=== PATIENT | male | born 1960 | race Caucasian/White ===

== ENCOUNTER 2024-06-01 08:10 | Observation (INO) | payer BC, SELFPAY ==
[2024-06-01] VITALS (36 sets, daily range): BP systolic 110–171; BP diastolic 66–110; PULSE 50–77; RESP 12–22; TEMP 36.6–37.1; O2SAT 97–100; BMI 28.0
--- NOTE | ~2024-06-01 | XR_ITS ---
XR chest 2V Ordering provider: Angus Samson MD History: 63 years Male with . LEFT UPPER CP . Comparison: None. FINDINGS: MEDIASTINUM: The cardiac silhouette is not enlarged. LUNGS: No infiltrates, effusions or pneumothorax. Pleural-based opacity is seen in the right apical area OTHER: No free air under the diaphragm. Degenerative changes of the spine IMPRESSION: Pleural-based opacity in the right apical area.Follow-up CT is advised. Otherwise, No acute cardiopulmonary pathology. Reviewed, dictated and finalized at location A. 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 Otherwi se, No acute cardiopulmonary pathology.
--- NOTE | ~2024-06-01 | CT_ITS ---
EXAMINATION:CT diagnostic chest w con DATE: 06/02/2024 09:44 INDICATION: Abnormal chest radiograph. TECHNIQUE: Computed tomography (CT) of the chest was performed without intravenous contrast. Automate d exposure control and iterative reconstruction technique were employed. The dose-length product (DLP ) was 325.40 mGy-cm. COMPARISON: Chest 2 views 06/01/2024 FINDINGS: There is mild scarring at the lung apices. There are a few nodules in the lungs measuring u p to 6 mm in right upper lobe. Calcified right lung nodules and calcified right hilar lymph nodes are consistent with old granulomatous disease. There is mild atelectasis bilaterally. No pleural effusio n. The heart size is normal. There is a stent in left anterior descending coronary artery. No pericar dial effusion. There is a small sliding hiatal hernia. Calcifications in the spleen are consistent wi th old granulomatous disease. There is diffuse hepatic steatosis. There is mild chronic anterior wedg ing of multiple vertebral bodies. There is mild thoracic spondylosis. IMPRESSION: 1. Pulmonary nodules measuring up to 6 mm, probably benign. Consider noncontrast low-dose chest CT in 6-12 months. 2. Small sliding hiatal hernia. 3. Diffuse hepatic steatosis. Reviewed, dictated and finalized at location A. HEALTH ASSISTANT IMPRESSION: 1. Pulmonary nodules measuring up to 6 mm, probably benign. Consider noncontras t low-dose chest CT in 6-12 months. 2. Small sliding hiatal hernia. 3. Diffuse hepatic steatosis.
--- NOTE | 2024-06-01 08:12 | ECG_ITS ---
Test Date: 2024-06-01 08:16:28 Measurements Intervals [place] Rate: 67 P: 4 IN: 138 QRS: -3 QRSD: 85 T: 47 QT: 368 QTc: 388 Interpretive Statements SINUS RHYTHM ST DEVIATION AND MODERATE T-WAVE ABNORMALITY, CONSIDER ANTEROLATERAL ISCHEMIA ABNORMAL ECG No previous ECG available for comparison Electronically Signed On 06-01-2024 08:45:28 [employer] by Jurgen Urias D.O.
--- NOTE | 2024-06-01 08:30 | ED_ITS ---
HPI - General Adult General Chief complaint: Chest Pain Stated complaint: cp, left arm pain Time Seen by Provider: 06/01/24 08:20 History of Present Illness HPI narrative: 63 old male presenting to the emergency department for evaluation for chest pain. Patient initially had high chest pain last night the associated with heartburn. Patient states the pain persisted. Patient states this morning when he woke up the pain did go to his left arm. Family murmur did encourage the patient to be evaluated. Patient does not have close follow-up with his physicians. Patient has no p rior diagnosis hypertension, high cholesterol or diabetes. Patient has never had a stress test. Patient denies any prior cardiac history. Related Data Allergies Allergy/AdvReac Type Severity Reaction Status Date / Time No Known Allergies Allergy Verified 06/01/24 08:25 [facility] Past Medical History Medical History (Updated 06/01/24 @ 14:00 by Flaquito Bose MD) History of PTCA 1 LAD 2023 Family History Family History Mother Breast cancer Father Hypertension Social History Social History Smoking status: Never smoker Second hand tobacco smoke exposure: No Alcohol intake: current Drinks per week: 2 Substance use: never Substance use type: does not use Do You Feel Safe in your Home?: Yes Lack of Transportation: No Lack of Food: Never True Current Housing: I Have Housing Concerned About Future Housing: No Difficulty Paying Gas/Electric Bills: No Difficulty Paying for Meds: No Currently Unemployed: No Education: High School Diploma/GED Difficulty w/ Childcare or Family Care: No Living arrangements: with family Occupation/Education: occupation 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 EYES: PERRLA/EOMI, conjunctivae clear. NOSE: Normal no drainage EARS:TMS clear with good light reflex. THROAT: Pharynx clear, no exudate. NECK: Supple. No adenopathy, no masses. RESPIRATORY: Airway patent, respirations nonlabored. Clear to auscultation bilaterally, no rales, rhonchi, wheezing. CARDIOVASCULAR: Regular rate and rhythm without murmurs rubs or gallops. ABDOMINAL: Soft, nontender, nondistended, normal bowel sounds MUSCULOSKELETAL: Moves all extremities. Strength/ROM intact, No edema, No calf tenderness. NEURO: Alert. Cranial nerves II through XII intact. SKIN: Warm, dry. Normal Color Course Vital Signs Vital signs: Vital Signs Temperature 97.8 F 06/01/24 08:21 Pulse Rate 77 06/01/24 08:21 Respiratory Rate 20 06/01/24 08:21 Blood Pressure 171/94 H 06/01/24 08:21 Pulse Oximetry 100 06/01/24 08:21 Oxygen Delivery Room Air 06/01/24 08:21 Temperature 98.0 F 06/01/24 13:20 Pulse Rate 59 L 06/01/24 17:00 Respiratory Rate 20 06/01/24 17:00 Blood Pressure 127/105 H 06/01/24 17:00 Pulse Oximetry 100 06/01/24 17:00 Oxygen Delivery Room Air 06/01/24 17:00 Medical Decision Making MDM Narrative Medical decision making narrative: 63-year-old male presenting emergency department for evaluation for chest pain that radiates into his left arm. Patient's initial EKG does have significant ST depressions. Patient is still having some chest discomfort. I discussed the case with Cardiology and they will evaluate him in the emergency department. They did as the patient to be started on aspirin and heparin. 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 Differential Diagnosis Differential Diagnosis: STEMI, NSTEMI, coronary artery spasm Vital Signs Vital Signs: Vital Signs Temperature 97.8 F 06/01/24 08:21 Pulse Rate 77 06/01/24 08:21 Respiratory Rate 20 06/01/24 08:21 Blood Pressure 171/94 H 06/01/24 08:21 Pulse Oximetry 100 06/01/24 08:21 Oxygen Delivery Room Air 06/01/24 08:21 Temperature 98.0 F 06/01/24 13:20 Pulse Rate 59 L 06/01/24 17:00 Respiratory Rate 20 06/01/24 17:00 Blood Pressure 127/105 H 06/01/24 17:00 Pulse Oximetry 100 06/01/24 17:00 Oxygen Delivery Room Air 06/01/24 17:00 Lab Data Lab results reviewed: Yes I reviewed the patient's lab results. 06/01/24 08:39 06/01/24 08:39 Labs: Lab Results 06/01/24 06/01/24 06/01/24 Range/Units 08:39 11:13 12:54 WBC 4.0 L (4.5-10.0) K/mm3 RBC 5.02 (4.6-6.20) M/mm3 Hgb 14.1 (14.0-18.0) g/dL Hct 42.1 (42.0-52.0) % MCV 83.9 (80-100) fl MCH 28.1 (26-34) pg MCHC 33.5 (32-36) g/dl RDW 13.4 (11.5-14.5) % Plt Count 231 (150-375) k/mm3 MPV 9.3 (7.4-10.4) fl Immature Gran % (Auto) 0.3 (0-0.5) % Neut % (Auto) 72.8 (45.5-73.1) % Lymph % (Auto) 16.5 L (18.3-44.2) % [place] % (Auto) 7.8 (2.6-8.5) % Eos % (Auto) 1.3 (0-4.4) % Baso % (Auto) 1.3 H (0.2-1.2) % Lymph # (Auto) 0.66 L (0.9-3.2) K/mm3 [place] # (Auto) 0.3 (0.1-0.6) K/mm3 Eos # (Auto) 0.1 (0-0.3) K/mm3 Baso # (Auto) 0.1 (0.0-0.1) K/mm3 Abs Immat Gran (auto) 0.01 (0.00-0.031) K/mm3 Absolute Neuts (auto) 2.9 (1.3-6.7) K/mm3 Absolute Nucleated RBC 0.000 (0.0-0.012) K/mm3 Nucleated RBC % 0.0 (0.0-0.2) % PT 13.5 (11.1-14.7) Seconds INR 1.0 APTT 24.2 (22.3-36.8) Seconds Activ Coag Time Kaolin 219 H (74-137) SEC Sodium 139 (137-145) mmol/L Potassium 4.3 (3.4-5.0) mmol/L Chloride 105 (98-107) mmol/L Carbon Dioxide 25 (22-30) mmol/L Anion Gap 9 (4-12) mmol/L BUN 22 H (9-20) mg/dL Creatinine 1.00 (0.7-1.3) mg/dL Estim Creat Clear Calc 72 ml/min Estimated GFR > 60 (59 - ) Glucose 127 H (65-110) mg/dL Calcium 9.0 (8.4-10.2) mg/dL Total Bilirubin 0.7 (0.2-1.3) mg/dL AST 22 (17-59) U/L ALT 22 (6-50) U/L Alkaline Phosphatase 49 (38-126) U/L Troponin I 0.126 H* 1.000 H* D (0.000-0.034) ng/mL Total Protein 7.0 (6.3-8.2) g/dL Albumin 4.4 (3.5-5.1) g/dL Lipase 54 (23-300) U/L Imaging Data Radiologist's impression: Impressions Chest X-Ray 06/01/24 08:55 IMPRESSION: Pleural-based opacity in the right apical area.Follow-up CT is advised. Otherwise, No acute cardiopulmonary pathology. Critical Care Time Critical Care Time Critical Care Time: Yes Total Critical Care Time: 35 Discharge Plan Discharge Clinical Impression: Non-ST elevation [place] (NSTEMI) Patient Disposition: Still a Patient Condition: Serious
[2024-06-01 08:45] LABS: Basophils Absolute Auto 0.1 K/mm3 (0.0-0.1); Basophils Percent Auto 1.3 % (0.2-1.2); Eosinophils Absolute Auto 0.1 K/mm3 (0-0.3); Eosinophils Percent Auto 1.3 % (0-4.4); Hematocrit 42.1 % (42.0-52.0); Hemoglobin 14.1 g/dL (14.0-18.0); Immature Granulocyte Absolute 0.01 K/mm3 (0.00-0.031); Immature Granulocyte Percent A 0.3 % (0-0.5); Lymphocytes Absolute Auto 0.66 K/mm3 (0.9-3.2); Lymphocytes Percent Auto 16.5 % (18.3-44.2); Mean Corpuscular HGB Conc 33.5 g/dl (32-36); Mean Corpuscular Hemoglobin 28.1 pg (26-34); Mean Corpuscular Volume 83.9 fl (80-100); Mean Platelet Volume 9.3 fl (7.4-10.4); Monocytes Absolute Auto 0.3 K/mm3 (0.1-0.6); Monocytes Percent Auto 7.8 % (2.6-8.5); Neutrophils Absolute Auto 2.9 K/mm3 (1.3-6.7); Neutrophils Percent Auto 72.8 % (45.5-73.1); Platelet Count Result 231 k/mm3 (150-375); Red Blood Count 5.02 M/mm3 (4.6-6.20); Red Cell Distribution Width 13.4 % (11.5-14.5)
[2024-06-01] MEDS: ASPIRIN 81 MG CHEWABLE TABLET 324 MG PO (08:46)
[2024-06-01] MEDS: HEPARIN SODIUM 5,000 UNITS/ML VIAL 4000 UNITS IV PUSH (08:46)
[2024-06-01 08:56] LABS: Prothrombin Time 13.5 Seconds (11.1-14.7)
[2024-06-01 08:57] LABS: Partial Thromboplastin Time 24.2 Seconds (22.3-36.8)
[2024-06-01 09:07] LABS: Alanine Aminotransferase 22 U/L (6-50); Albumin Level 4.4 g/dL (3.5-5.1); Alkaline Phosphatase 49 U/L (38-126); Anion Gap 9 mmol/L (4-12); Aspartate Amino Transferase 22 U/L (17-59); Bilirubin,Total 0.7 mg/dL (0.2-1.3); Blood Urea Nitrogen 22 mg/dL (9-20); Carbon Dioxide 25 mmol/L (22-30); Chloride 105 mmol/L (98-107); Estimated CRCL calculation 72 ml/min; Estimated Glomerular Filt Rate > 60; Glucose 127 mg/dL (65-110); Lipase 54 U/L (23-300); Potassium 4.3 mmol/L (3.4-5.0); Sodium 139 mmol/L (137-145)
[2024-06-01 09:12] LABS: Troponin I 0.126 ng/mL (0.000-0.034)
--- NOTE | 2024-06-01 09:55 | PM.CNCAR ---
Assessment and Plan Assessment and plan (1) Non-ST elevation [place] (NSTEMI): Code(s): I21.4 - Non-ST elevation (NSTEMI) myocardial infarction Status: Acute Plan 63-year-old man presented with chest pain whose clinical presentation is consistent with non ST elevation GA Non ST-elevation GA -ECG suggestive of global ischemia and urgent cardiac catheterization was recommended to the patient -the risk and benefits of cardiac catheterization was discussed with patient and patient elected to move forward with cardiac catheterization -in the meantime, it was recommended that he start a heparin drip for ACS protocol and aspirin 324 mg was recommended -start atorvastatin 80 mg every evening -start metoprolol tartrate 25 mg p.o. b.i.d. -obtained and echocardiogram History of Present Illness History of Present Illness Consult date/time: 06/01/24 09:55 Requesting physician: Angus Samson MD Reason For Visit: cp, left arm pain Narrative: 63-year-old man presented with chest pain. Substernal chest pressure started yesterday while he was running with the dogs. The chest discomfort resolved with rest. Throughout yesterday he continued to have chest discomfort with physical exertion that was relieved with rest. He denies any palpitations, loss of consciousness, orthopnea, lower extremity swelling, and shortness of breath. He denies any bleeding or vascular surgeries in the past. He is otherwise a very functional person who runs the dog almost daily. 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 Gender identity (if verbalized by the patient): Male Sexual Orientation (if Verbalized by the Patient): Straight or Heterosexual Meds Home Medications and Allergies Home Medications Medication Instructions Recorded Confirmed Type amoxicillin 875 mg-potassium 1 tablet PO Q12H #14 tabs 04/25/23 04/25/23 Rx clavulanate 125 mg tablet benzonatate 200 mg capsule 200 mg PO TID PRN cough #30 caps 04/25/23 04/25/23 Rx nirmatrelvir 300 mg (150 mg See Rx Instructions PO .COMPLEX 06/07/23 Rx x2)-ritonavir 100 mg tablet,dose #30 ea pack (Paxlovid) nirmatrelvir 300 mg (150 mg See Rx Instructions PO .COMPLEX 03/02/24 Rx x2)-ritonavir 100 mg tablet,dose #30 ea pack (Paxlovid) Allergies Allergy/AdvReac Type Severity Reaction Status Date / Time No Known Allergies Allergy Verified 06/01/24 08:25 Vital Signs Vital Signs - 24 hr 06/01/24 08:21 06/01/24 08:24 06/01/24 09:13 Temperature 36.6 C Pulse Rate 77 77 62 Respiratory Rate 20 17 Blood Pressure 171/94 H 147/85 H Pulse Oximetry 100 99 Oxygen Delivery Room Air 06/01/24 08:25 06/01/24 08:31 06/01/24 08:45 Temperature Pulse Rate 65 65 62 Respiratory Rate 12 16 16 Blood Pressure 147/89 H Pulse Oximetry 97 100 97 Oxygen Delivery 06/01/24 09:27 Temperature Pulse Rate Respiratory Rate Blood Pressure Pulse Oximetry 100 Oxygen Delivery Room Air Exam Const: General: comfortable HENMT: Mouth: Yes moist mucous membranes Eyes: EOM: EOMs intact bilaterally Neck: Neck: no JVD Resp: Auscultation: clear to auscultation bilaterally Cardio: Rate: regular rate Rhythm: regular rhythm GI: GI Palp: Yes Soft to palpation Neuro: Speech: normal speech Extrem: General: normal to inspection and no edema Psych: Affect: normal affect Results Labs and Meds 06/01/24 08:39 06/01/24 08:39 Lab results: Cardiac Enzymes 06/01/24 Range/Units 08:39 AST 22 (17-59) U/L Troponin I 0.126 H* (0.000-0.034) ng/mL Coagulation 06/01/24 Range/Units 08:39 PT 13.5 (11.1-14.7) Seconds APTT 24.2 (22.3-36.8) Seconds CBC 06/01/24 Range/Units 08:39 WBC 4.0 L (4.5-10.0) K/mm3 RBC 5.02 (4.6-6.20) M/mm3 Hgb 14.1 (14.0-18.0) g/dL Hct 42.1 (42.0-52.0) % Plt Count 231 (150-375) k/mm3 Lymph # (Auto) 0.66 L (0.9-3.2) K/mm3 [place] # (Auto) 0.3 (0.1-0.6) K/mm3 Eos # (Auto) 0.1 (0-0.3) K/mm3 Baso # (Auto) 0.1 (0.0-0.1) K/mm3 Comprehensive Metabolic Panel 06/01/24 Range/Units 08:39 Sodium 139 (137-145) mmol/L Potassium 4.3 (3.4-5.0) mmol/L Chloride 105 (98-107) mmol/L Carbon Dioxide 25 (22-30) mmol/L BUN 22 H (9-20) mg/dL Creatinine 1.00 (0.7-1.3) mg/dL Glucose 127 H (65-110) mg/dL Calcium 9.0 (8.4-10.2) mg/dL AST 22 (17-59) U/L ALT 22 (6-50) U/L Alkaline Phosphatase 49 (38-126) U/L Total Protein 7.0 (6.3-8.2) g/dL Albumin 4.4 (3.5-5.1) g/dL Patient Weight 06/01/24 23:59 Weight 93.6 kg
--- NOTE | 2024-06-01 11:06 | ECG_ITS ---
Test Date: 2024-06-01 11:14:38 Measurements Intervals [place] Rate: 60 P: 16 [place]: 146 QRS: -3 QRSD: 95 T: 31 QT: 401 QTc: 402 Interpretive Statements SINUS RHYTHM VOLTAGE CRITERIA FOR LVH MINIMAL Q WAVES- HIGH LATERAL LEADS BASELINE ARTIFACT- V6 BORDERLINE ECG Compared to ECG 06/01/2024 08:16:28 POSSIBLE ISCHEMIA NO LONGER PRESENT Electronically Signed On 06-01-2024 11:52:49 [employer]BALL PLAY[employer] by Jurgen Urias D.O.
[2024-06-01] MEDS: METOPROLOL TARTRATE 25 MG TABLET PO ×2 (11:48→21:32)
--- NOTE | 2024-06-01 11:51 | PC.NURSE ---
cardiac catheterization technician RN's to get patient at 1150 and off ED floor at 1152
--- NOTE | 2024-06-01 11:56 | WPDHPUPDATE1 ---
History and Physical Update Update Date/Time: 06/01/24 11:56 History and Physical has been reviewed, including an updated exam of the patient. There are NO changes in the patient's condition. Risks, benefits, and alternatives have been discussed and questions answered. Patient agrees to proceed with procedure.
--- NOTE | 2024-06-01 11:57 | P.SEDATION_ITS ---
Moderate Sedation Note-Pt Data Patient Data Allergies Allergy/AdvReac Type Severity Reaction Status Date / Time No Known Allergies Allergy Verified 06/01/24 08:25 Home Medications Medication Instructions Recorded Confirmed Type amoxicillin 875 mg-potassium 1 tablet PO Q12H #14 tabs 04/25/23 04/25/23 Rx clavulanate 125 mg tablet benzonatate 200 mg capsule 200 mg PO TID PRN cough #30 caps 04/25/23 04/25/23 Rx nirmatrelvir 300 mg (150 mg See Rx Instructions PO .COMPLEX 06/07/23 Rx x2)-ritonavir 100 mg tablet,dose #30 ea pack (Paxlovid) nirmatrelvir 300 mg (150 mg See Rx Instructions PO .COMPLEX 03/02/24 Rx x2)-ritonavir 100 mg tablet,dose #30 ea pack (Paxlovid) Current Medications: Active Medications Aspirin (Aspirin 81 Mg Enteric Tablet) 81 mg PO QAM JAYNE Atorvastatin Calcium (Atorvastatin 40 Mg Tablet) 80 mg PO HS JAYNE Metoprolol Tartrate (Metoprolol Tartrate 25 Mg Tablet) 25 mg PO Q12HR JAYNE Last Admin: 06/01/24 11:48 Dose: 25 mg Perflutren Lipid Microsphere (Perflutren Lipid Microspheres 1.5 Ml Vial Diluted To 10 Ml Total Volume) 0 ml IV PUSH ONCE PRN; Protocol PRN Reason: adequate visualization Stop: 06/04/24 10:00 Sedation/Anesthesia: No previous sedation/anesthesia problems (including family history). 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 Gender identity (if verbalized by the patient): Male Sexual Orientation (if Verbalized by the Patient): Straight or Heterosexual Mod Sed Physical Exam Physical Exam Pre Procedural Exam: Normal: Lungs, Heart Rate and Heart Rhythm Hours since solid foods: 12 Hours since liquid intake: 12 Mallampati Classification: class II Internal Medicine - PN: Obj Da Vital Signs Vital Signs: Vital Signs - 24 hr 06/01/24 08:21 06/01/24 08:24 06/01/24 09:13 Temperature 36.6 C Pulse Rate 77 77 62 Respiratory Rate 20 17 Blood Pressure 171/94 H 147/85 H Pulse Oximetry 100 99 Oxygen Delivery Room Air 06/01/24 08:25 06/01/24 08:31 06/01/24 08:45 Temperature Pulse Rate 65 65 62 Respiratory Rate 12 16 16 Blood Pressure 147/89 H Pulse Oximetry 97 100 97 Oxygen Delivery 06/01/24 09:27 06/01/24 10:22 06/01/24 11:48 Temperature Pulse Rate 64 67 Respiratory Rate 16 Blood Pressure 141/79 H Pulse Oximetry 100 100 Oxygen Delivery Room Air 06/01/24 11:00 06/01/24 11:16 06/01/24 11:46 Temperature Pulse Rate 62 66 66 Respiratory Rate 18 20 13 Blood Pressure 143/89 H Pulse Oximetry 100 100 100 Oxygen Delivery Meds/Results Medications: Active Medications Generic Name Dose Route Start Last Admin Trade Name Freq PRN Reason Stop Dose Admin Aspirin 81 mg 06/02/24 09:00 Aspirin 81 Mg Enteric Tablet PO QAM [facility] Atorvastatin Calcium 80 mg 06/01/24 21:00 Atorvastatin 40 Mg Tablet PO HS [facility] Metoprolol Tartrate 25 mg 06/01/24 11:30 06/01/24 11:48 Metoprolol Tartrate 25 Mg Tablet PO 25 mg Q12HR [facility] Administration Perflutren Lipid Microsphere 0 ml 06/01/24 10:00 Perflutren Lipid Microspheres 1.5 Ml Vial Diluted To 10 Ml Total Volume IV PUSH 06/04/24 10:00 ONCE PRN adequate visualization Protocol Radiology Results: ITS Impressions Chest X-Ray 06/01/24 08:55 IMPRESSION: Pleural-based opacity in the right apical area.Follow-up CT is advised. Otherwise, No acute cardiopulmonary pathology. Labs 06/01/24 08:39 06/01/24 08:39 Labs: Laboratory Results - last 24 hr 06/01/24 06/01/24 08:39 11:13 WBC 4.0 L RBC 5.02 Hgb 14.1 Hct 42.1 MCV 83.9 MCH 28.1 MCHC 33.5 RDW 13.4 Plt Count 231 MPV 9.3 Immature Gran % (Auto) 0.3 Neut % (Auto) 72.8 Lymph % (Auto) 16.5 L [place] % (Auto) 7.8 Eos % (Auto) 1.3 Baso % (Auto) 1.3 H Lymph # (Auto) 0.66 L [place] # (Auto) 0.3 Eos # (Auto) 0.1 Baso # (Auto) 0.1 Abs Immat Gran (auto) 0.01 Absolute Neuts (auto) 2.9 Absolute Nucleated RBC 0.000 Nucleated RBC % 0.0 PT 13.5 INR 1.0 APTT 24.2 Sodium 139 Potassium 4.3 Chloride 105 Carbon Dioxide 25 Anion Gap 9 BUN 22 H Creatinine 1.00 Estim Creat Clear Calc 72 Estimated GFR > 60 Glucose 127 H Calcium 9.0 Total Bilirubin 0.7 AST 22 ALT 22 Alkaline Phosphatase 49 Troponin I 0.126 H* 1.000 H* D Total Protein 7.0 Albumin 4.4 Lipase 54 ASA Classification/Sedation ASA Classification/Sedation ASA Class: III Emergent: No Risks: Risks, benefits and alternatives explained and patient/family accepted plan for sedation. Patient re-evaluated immediately prior to sedation.
--- NOTE | 2024-06-01 11:58 | WPDCARDPROC ---
Cardiac Cath Procedure Note Date of procedure:: 06/01/24 Performing physician:: CATHETERIZATION LABORATORY REPORT Procedure Date: 06/01/2024 Referring Physician: Dr. Samson Anesthesia: Versed and Fentanyl were ordered and given in my presence at 1207, procedure ended at 1256. Supervision of nurse, Best Ascencio monitored moderate sedation with 2mg Versed and 50mcg Fentanyl was provided for 49 minutes. Pre-op Diagnosis: NSTEMI Post-op Diagnosis: NSTEMI Procedure(s): Left heart catheterization with coronary angiography Access Site: Right radial artery Brief History and Clinical Indications: 63-year-old man who presented with chest pain found to have abnormal ECG and troponin biomarkers whose clinical presentation is consistent with non ST elevation now presents for left heart catheterization with possible percutaneous coronary intervention. All risks, benefits and alternatives to left heart catheterization with or without percutaneous coronary intervention was discussed at length with the patient. Risk of complications including but not limited to bleeding, infection, arrhythmia, stroke, worsening kidney function, blood loss, groin hematoma, limb loss, emergency coronary artery bypass grafting, and even were discussed with the patient and all questions were answered. The patient understood and wished to proceed. Time out called, patient name, date of , medical record number, allergies, procedure performed, identify Sand System Operator, patient and staff member concurred with accurate data, procedure carried on. Findings: LEFT HEART CATHETERIZATION FINDINGS: 1. Left main: The left main coronary artery is widely patent without any significant obstructive disease. 2. Left anterior descending: The LAD is a large caliber vessel that wraps around the apex and gives off 1 large diagonal branch. The proximal to mid LAD has an acute 99% thrombotic lesion. 3. Left circumflex: The left circumflex artery gives off 3 main marginal branches have mild luminal irregularities without any significant obstructive angiographic disease. 4. Right coronary artery: The RCA has mild luminal irregularities without any significant obstructive angiographic disease. The RCA is the dominant vessel. 5. Left ventricle: A. End-diastolic pressure 28 mmHg. B. LV gram deferred. C. No significant gradient across aortic valve on catheter pullback. 6. Opening AO pressure 137/92 and closing AO pressure 154/88 Description of Procedure: Informed consent signed and placed in the chart. Patient transferred to open hearth furnace laborer room. Prepped and draped in usual sterile fashion. 2% lidocaine injected subcutaneously in right wrist area. 22-gauge venipuncture catheter used to access the right radial artery with the Seldinger technique. 6-FR slender sheath placed in right radial artery. Nitroglycerin 200mcg, Verapamil 2.5mg, and Heparin 5000U was given intraarterial through the sheath. J wire advanced under fluoroscopy 5F TIG diagnostic catheter engaged Left Main Coronary Artery. 5F TIG diagnostic catheter engaged Right Coronary Artery Multiple orthogonal angiogram obtained and reviewed 5F Pigtail diagnostic catheter crossed aortic valve to obtain LVEDP, LV angiogram deferred. Procedure Description for PCI: Heparin was used for anticoagulation (ACT maintained above 250) Patient loaded with heparin at 70 units/kg. 6F CLS 3.5 guide catheter was used to intubate the LMCA. 0.014 Runthrough NS coronary wire was passed in to the distal LAD. A 4.0 x 34mm Bjorn Cabell ROWENA was successfully deployed into proximal to mid LAD; post dilated with a 4.5 x 12mm NC balloon. Following this, an IVUS catheter was negotiated into the mid LAD over the coronary wire. Imaging showed adequate expansion and apposition; however, there was an area of proximal edge dissection. Further angiographic images were taken confirming the proximal edge dissection which was flow limiting. This area was covered with a 5.0 x 12mm Bjorn Cabell ROWENA with excellent angiographic results. Intracoronary NTG was administered. Follow-up angiograms showed an excellent result. Coronary wire and guide-catheter were removed under fluoroscopy. Pre-procedure - BOB 2flow Post-procedure - BOB 3 flow No angiographic complications identified. Assessment: Successful IVUS guided PCI to the proximal to mid LAD with overlapping 4.0 x 34mm [place] Cabell ROWENA and 5.0 x 12mm [place] Cabell ROWENA proximally with excellent angiographic results. Post Operative Condition: Stable No significant blood loss Disposition: Floor Plan: The patient will be monitored in the recovery area. DAPT for 1 year followed by ASA indefinitely. Continue aggressive medical therapy and risk factor modification. Obtain a transthoracic echocardiogram. Follow up with me this month . Kavin Cohen Interventional Cardiology
[2024-06-01 12:59] LABS: Activated Clotting Time 219 SEC (74-137)
--- NOTE | 2024-06-01 14:44 | ADMGEN ---
This patient, Jose Ta, was admitted to [place] [id number]. Patient/family oriented to hospital policies and general routines including ID bracelet, bed and alarms, visiting hours, pain management, procedures, bathroom and other care routines, personal items, smoking policy, room service/diet, and visiting hours. Information on how to activate the Rapid Response Team has been discussed. Patient/Family are encouraged to report perceived risks to care and to ask questions if they do not understand what they are told or what they should do.
[2024-06-01] MEDS: SODIUM CHLORIDE 0.9% IV 1,000 ML 125 ML IV CONT (15:23)
--- NOTE | 2024-06-01 17:59 | P.HP_ITS ---
H&P: HPI History of Present Illness Date/Time: 06/01/24 17:59 Chief Complaint: Chest pain Narrative: 63yo healthy male who presents with chest pain. Patient developed upper chest pain described as 'heartburn' while walking the dog the day before admission. Symptoms were brief and not associated with nauea, vomiting, diaphoresis or SOB. No radiation to the pain. He does mention that about 1 week ago, he had an episode on dizziness, lightheaded with nausea and vomiting while out to eat. He has not eaten all that day and may have e3aten too fast. No chest hakan associated with those symptoms. Patient awoke early this morning and was getting ready for work when he developed left upper chest pain. His left arm felt 'numb'. No SOB, nausea or diaphoresis. No radiation to the pain. He denies hx of HTN, HLD, DM or tobacco use. No family hx of early CAD. He has been feeling well otherwise and no other symptoms. He was brought to the ED by his in private car. In the ED, patient was hemodynamically stable. He was hypertensive with a blood pressure of 171/94. He was not febrile, tachycardic, tachypneic or hypoxic. EKG showed normal sinus rhythm with ST deviation and moderate T-wave changes consider anterior lateral ischemia. Chest x-ray showed a pleural based opacity in the right apical area otherwise no acute cardiopulmonary disease. CBC was normal except for a mild lymphopenia. CMP was normal except for a BUN 22 and a glucose of 127. Lipase was normal. Troponin trended up to 1.0. Patient was seen in the emergency room by Cardiology and was taken acutely for a left heart catheterization. He was found to have proximal to mid LAD acute 99% thrombotic lesion. The left main was widely patent without significant disease. Left circumflex and RCA had mild luminal irregularities. Patient underwent PCI of the proximal to mid LAD lesion with placement of a drug-eluting stent with good results. He was admitted for further care. No exposure to asbestosis that he is aware of. 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 Review of Systems Review of Systems: All systems reviewed & are unremarkable except as noted in HPI and below [facility] Past Medical History Medical History (Updated 06/01/24 @ 18:51 by James Carolina MD) CAD (coronary artery disease) History of PTCA 2023 Surgical History Surgical History (Updated 06/01/24 @ 18:51 by James Carolina MD) No history of previous surgery Family History Family History Mother Breast cancer Father Hypertension Social History Social History (Updated 06/01/24 @ 18:52 by James Carolina MD) Social History: Patient lives at home with his . They have 2 dogs. He drinks 3-4 alcoholic drinks per week. Lifelong nonsmoker. No history of drug use. Code status -full Surrogate decision maker - Smoking status: Never smoker Second hand tobacco smoke exposure: No Alcohol intake: current Drinks per week: 2 Substance use: never Substance use type: does not use Do You Feel Safe in your Home?: Yes Lack of Transportation: No Lack of Food: Never True Current Housing: I Have Housing Concerned About Future Housing: No Difficulty Paying Gas/Electric Bills: No Difficulty Paying for Meds: No Currently Unemployed: No Education: High School Diploma/GED Difficulty w/ Childcare or Family Care: No Living arrangements: with family Occupation/Education: occupation 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 Gender identity (if verbalized by the patient): Male Sexual Orientation (if Verbalized by the Patient): Straight or Heterosexual Spiritual care concerns: No Meds Home Medications and Allergies Home Medications Medication Instructions Recorded Confirmed Type ticagrelor 90 mg tablet (Brilinta) 90 mg PO Q12HR 30 days #60 tabs 06/01/24 Rx Allergies Allergy/AdvReac Type Severity Reaction Status Date / Time No Known Allergies Allergy Verified 06/01/24 08:25 Vital Signs Vital Signs - 24 hr 06/01/24 08:21 06/01/24 08:24 06/01/24 09:13 Temperature 97.8 F Pulse Rate 77 77 62 Pulse Rate [Monitor] Respiratory Rate 20 17 Blood Pressure 171/94 H 147/85 H Pulse Oximetry 100 99 Oxygen Delivery Room Air 06/01/24 08:25 06/01/24 08:31 06/01/24 08:45 Temperature Pulse Rate 65 65 62 Pulse Rate [Monitor] Respiratory Rate 12 16 16 Blood Pressure 147/89 H Pulse Oximetry 97 100 97 Oxygen Delivery 06/01/24 09:27 06/01/24 10:22 06/01/24 11:48 Temperature Pulse Rate 64 67 Pulse Rate [Monitor] Respiratory Rate 16 Blood Pressure 141/79 H Pulse Oximetry 100 100 Oxygen Delivery Room Air 06/01/24 11:00 06/01/24 11:16 06/01/24 11:46 Temperature Pulse Rate 62 66 66 Pulse Rate [Monitor] Respiratory Rate 18 20 13 Blood Pressure 143/89 H Pulse Oximetry 100 100 100 Oxygen Delivery 06/01/24 13:20 06/01/24 13:20 06/01/24 13:30 Temperature 98.0 F Pulse Rate 53 L 50 L Pulse Rate [Monitor] 57 L Respiratory Rate 16 17 Blood Pressure 136/84 133/103 H Pulse Oximetry 99 98 Oxygen Delivery Room Air Room Air 06/01/24 13:30 06/01/24 13:45 06/01/24 13:45 Temperature Pulse Rate 50 L Pulse Rate [Monitor] 50 L 50 L Respiratory Rate 19 Blood Pressure 125/92 H Pulse Oximetry 98 Oxygen Delivery Room Air 06/01/24 14:00 06/01/24 14:00 06/01/24 14:15 Temperature Pulse Rate 55 L Pulse Rate [Monitor] 55 L 53 L Respiratory Rate 17 Blood Pressure Pulse Oximetry 100 Oxygen Delivery Room Air 06/01/24 14:15 06/01/24 14:30 06/01/24 14:30 Temperature Pulse Rate 53 L 54 L Pulse Rate [Monitor] 54 L Respiratory Rate 14 16 Blood Pressure 130/85 110/66 Pulse Oximetry 100 100 Oxygen Delivery Room Air Room Air 06/01/24 15:00 06/01/24 15:00 06/01/24 14:45 Temperature Pulse Rate 58 L Pulse Rate [Monitor] 60 60 Respiratory Rate 19 Blood Pressure 137/77 Pulse Oximetry 97 Oxygen Delivery Room Air 06/01/24 14:45 06/01/24 15:15 06/01/24 15:45 Temperature Pulse Rate 60 61 59 L Pulse Rate [Monitor] Respiratory Rate 14 20 19 Blood Pressure 121/79 149/83 H 116/69 Pulse Oximetry 100 100 100 Oxygen Delivery Room Air Room Air Room Air 06/01/24 15:30 06/01/24 16:00 06/01/24 16:15 Temperature Pulse Rate 60 58 L 59 L Pulse Rate [Monitor] Respiratory Rate 18 18 22 H Blood Pressure 149/110 H 129/72 128/74 Pulse Oximetry 99 99 98 Oxygen Delivery Room Air Room Air Room Air 06/01/24 16:30 06/01/24 16:45 06/01/24 17:00 Temperature Pulse Rate 60 62 59 L Pulse Rate [Monitor] Respiratory Rate 15 18 20 Blood Pressure 137/77 132/83 127/105 H Pulse Oximetry 99 100 100 Oxygen Delivery Room Air Room Air Room Air Exam Narrative: AF 98.8 143/91 54 16 100% ra Gen - well appearing male in no acute respiratory distress who is nontoxic- appearing lying semi recumbent in bed HEENT - normocephalic. Atraumatic. Pupils equal round and reactive. Extraocular motions intact. Sclera clear and anicteric. Nares patent. Oropharynx was clear. No oral lesions. Moist mucous membranes. Tongue was midline. Palate liam symmetrically. No facial asymmetry. Neck - neck was supple. No thyromegaly or masses. No dominant anterior cervical, posterior cervical, supraclavicular or axillary adenopathy. 2+ carotid upstrokes without bruits. Chest - lungs are clear to auscultation bilaterally. No wheezes or crackles. CV - heart was regular rate and rhythm. S1-S2. No murmurs gallops or rubs. Abd - abdomen was soft. Nontender. Nondistended. Positive bowel sounds. No organomegaly or masses. Ext - no clubbing, cyanosis or pedal edema. 2+ PT pulses bilaterally. Right UE in extension with arm immobilizer. Right radial dressing clean, dry and intact. Neuro - patient is alert and oriented x4. Strength is 5/5 in both upper and lower extremities. Cranial nerves 2-12 are intact. Speech is clear. Psych - normal mood and affect. Patient is pleasant and cooperative. Skin - warm and dry. No rashes noted. H&P: Results Labs Labs: Short CBC 06/01/24 Range/Units 08:39 WBC 4.0 L (4.5-10.0) K/mm3 Hgb 14.1 (14.0-18.0) g/dL Hct 42.1 (42.0-52.0) % Plt Count 231 (150-375) k/mm3 [facility] 06/01/24 08:39 Sodium 139 Potassium 4.3 Chloride 105 Carbon Dioxide 25 BUN 22 H Creatinine 1.00 Glucose 127 H Calcium 9.0 Cardiac Enzymes 06/01/24 06/01/24 Range/Units 08:39 11:13 Troponin I 0.126 H* 1.000 H* D (0.000-0.034) ng/mL Liver Function 06/01/24 Range/Units 08:39 Total Bilirubin 0.7 (0.2-1.3) mg/dL AST 22 (17-59) U/L ALT 22 (6-50) U/L Alkaline Phosphatase 49 (38-126) U/L Albumin 4.4 (3.5-5.1) g/dL Assessment and Plan Assessment and plan (1) Non-ST elevation OK (NSTEMI): Code(s): I21.4 - Non-ST elevation (NSTEMI) myocardial infarction Status: Acute Assessment and Plan: Patient presents with CP and found to have abnormal EKG and elevated Trop consistent with NSTEMI. He underwent emergent LHC and found to have a discreet LAD lesion s/p PCI with ROWENA placement. He tolerated the procedure well. Echo ordered. Continue medical management with ASA, Brilinta, Lipitor and Lopressor. (2) CAD (coronary artery disease): Code(s): I25.10 - Atherosclerotic heart disease of [place] coronary artery without angina pectoris Status: Acute Assessment and Plan: As above. Continue aggressive medical management. Check A1c, lipids. (3) Elevated blood pressure reading: Code(s): R03.0 - Elevated blood-pressure reading, without diagnosis of hypertension Status: Acute Assessment and Plan: BP elevated on admission which could be related to anxiety, pain or stress. He also may have underlying HTN. BP better controlled. Continue Lopressor Titrate medications as needed (4) Abnormal chest x-ray: Code(s): R93.89 - Abnormal findings on diagnostic imaging of other specified body structures Status: Acute Assessment and Plan: CXR showing a pleural-based opacity right apical area. No obvious risk factors. He has a hx of PNA so consider scarring. Will proceed with CT chest. (5) Lymphopenia: Code(s): D72.810 - Lymphocytopenia Status: Acute Assessment and Plan: WBC 4000 with lymphopenia (ALC 660). Has had a PNA in the past but no frequent infections. Could be transient possibly for viral etiolgy. Differential is long and includes sarcoid, RA, alcohol, histo, TB that could be associated with the lung findings. Will repeat to see if persistent finding. Watch for s/sx of withdrawal Plan DVT prophylaxis - SCDs Code status - Full
[2024-06-01] MEDS: ATORVASTATIN 40 MG TABLET 80 MG PO (21:32)
[2024-06-01] MEDS: TICAGRELOR 90 MG TABLET PO (21:32)
[2024-06-02] VITALS (14 sets, daily range): BP systolic 121–132; BP diastolic 67–80; PULSE 52–72; RESP 16–20; TEMP 36.5–36.9; O2SAT 98–100
--- NOTE | 2024-06-02 | ECHO_ITS ---
Patient Info Name: Jose Ta Age: 63 years : 1960 Gender: Male Ht: 72 in Wt: 198 lbs BSA: 2.15 m2 HR: 54 bpm BP: 127 / 72 mmHg Heart Rhythm: Sinus Rhythm Technical Quality: Good Exam Date: 06/02/2024 12:13 PM Exam Location: Echo Lab Patient Status: Outpatient Admit Date: 06/01/2024 Staff Ordering Physician: Kavin Cohen MD ([facility]) Merchant Seaman: Chioma Toth RDCS Attending Provider: James Carolina MD Exam Type: CA echo doppler color flow Study Info Indications - NSTEMI Complete two-dimensional, color flow and Doppler transthoracic echocardiogram is performed. Summary 1. Left ventricular chamber dimension is normal. 2. Left ventricular systolic function is normal, estimated at 60-65%. 3. There is mildly increased left ventricular wall thickness. 4. The left ventricular diastolic function is grade I diastolic dysfunction. 5. Right ventricular systolic function is normal. 6. Left atrial chamber dimension is mildly enlarged. 7. There is mild aortic valve regurgitation. 8. The aortic root size at the sinus of Valsalva is dilated at 4.2cm.. Left Ventricle Left ventricular chamber dimension is normal. Left ventricular systolic function is normal, estimated at 60-65%. There is mildly increased left ventricular wall thickness. The left ventricular diastolic function is grade I diastolic dysfunction. Right Ventricle Right ventricular chamber dimension is normal. Right ventricular systolic function is normal. Left Atria Left atrial chamber dimension is mildly enlarged. Right Atria Right atrial chamber dimension is normal. Atrial Septum Intact interatrial septum visualized by color flow imaging. Aortic Valve The aortic valve is probable trileaflet. There is no aortic valve stenosis. There is mild aortic valve regurgitation. Pulmonic Valve The pulmonic valve is normal. There is trace pulmonic regurgitation. Mitral Valve There is trace mitral valve regurgitation. Tricuspid Valve There is trace tricuspid valve regurgitation. Pericardium/Pleural The pericardium appears epicardial fat pad. There is no pericardial effusion. Inferior Vena Cava Normal inferior vena cava with >50% collapse upon inspiration consistent with normal right atrial pressure, 3 mmHg. Aorta The aortic root size at the sinus of Valsalva is dilated at 4.2cm.. Left Ventricular Outflow Tract Name Value Normal LVOT 2D LVOT Diameter 2.2 cm LVOT Doppler LVOT Peak Gradient 2 mmHg LVOT Mean Gradient 1 mmHg LVOT VTI 15 cm LVOT VTI/AV VTI Ratio 0.8 LVOT Stroke Volume 60 ml LVOT CO 3.4 l/min LVOT CI 1.6 l/min/m2 Pulmonic Valve Name Value Normal PV Regurgitation Doppler AZ Peak End Diastolic Velocity 72 cm/s Mitral Valve Name Value Normal MV Doppler MV Decel Edmunds 237 cm/s2 MV PHT 76 ms MV Area (PHT) 2.9 cm2 4.0-5.0 MV Diastolic Function MV E Peak Velocity 62 cm/s MV A Peak Velocity 50 cm/s MV E/A 1.2 MV Decel Time 263 ms MV Annular TDI MV E/e' (Septal) 9.0 <=8.0 MV E/e' (Lateral) 6.6 <=8.0 MV E/e' (Average) 7.8 Tricuspid Valve Name Value Normal TV Regurgitation Doppler TR Peak Velocity 197 cm/s TR Peak Gradient 5 mmHg Estimated PAP/RSVP RA Pressure 3 mmHg <=5 PA Systolic Pressure 19 mmHg <36 RV Systolic Pressure 19 mmHg <36 Aortic Valve Name Value Normal AV Doppler AV Peak Velocity 103 cm/s AV Peak Gradient 4 mmHg AV Mean Gradient 2 mmHg AV VTI 19 cm AV Area (Cont Eq VTI) 3.1 cm2 >=3.0 AV Area (Cont Eq Zachary) 2.8 cm2 AV Regurgitation 2D LVOT Area 3.9 cm2 AV Regurgitation Doppler AR Decel Time 2,420 ms AR Decel Edmunds 134 cm/s2 AR PHT 702 ms Ventricles Name Value Normal LV Dimensions 2D/MM IVS Diastolic Thickness (2D) 1.0 cm 0.6-1.0 LVID Diastole (2D) 5.6 cm 4.2-5.8 LVIW Diastolic Thickness (2D) 1.0 cm 0.6-1.0 LVID Systole (2D) 3.6 cm 2.5-4.0 LVOT Diameter 2.2 cm LV Mass (2D Cubed) 227.27 g 88.00-224.00 LV Mass Index (2D Cubed) 106 g/m2 49-115 Relative Wall Thickness (2D) 0.37 LV Fractional Shortening/Ejection Fraction 2D/MM LV Fractional Shortening (2D) 36 % 25-43 LV EF (2D Teicholz) 64 % 52-72 LV Diastolic Volume (4C MOD) 141 ml LV EF (4C MOD) 54 % LV Diastolic Volume (2C MOD) 122 ml LV EF (2C MOD) 62 % LV Diastolic Volume (BP MOD) 132 ml 62-150 LV Diastolic Volume Index (BP MOD) 61 ml/m2 34-74 LV Systolic Volume (BP MOD) 54 ml 21-61 LV Systolic Volume Index (BP MOD) 25 ml/m2 11-31 LV EF (BP MOD) 59 % 52-72 LV Diastolic Length (4C) 8.6 cm LV Systolic Length (4C) 6.7 cm LV Stroke Volume (4C MOD) 76 ml Atria Name Value Normal LA Dimensions LA Volume (4C A-L) 68 ml LA Volume (BP A-L) 86 ml RA Dimensions RA Area (4C) 10.8 cm2 <=18.0 Report Signatures
[2024-06-02 05:05] LABS: Basophils Percent Auto 0.6 % (0.2-1.2); Eosinophils Absolute Auto 0.1 K/mm3 (0-0.3); Eosinophils Percent Auto 1.5 % (0-4.4); Hematocrit 40.9 % (42.0-52.0); Hemoglobin 13.4 g/dL (14.0-18.0); Immature Granulocyte Absolute 0.01 K/mm3 (0.00-0.031); Immature Granulocyte Percent A 0.2 % (0-0.5); Lymphocytes Absolute Auto 0.95 K/mm3 (0.9-3.2); Lymphocytes Percent Auto 17.7 % (18.3-44.2); Mean Corpuscular HGB Conc 32.8 g/dl (32-36); Mean Corpuscular Hemoglobin 27.7 pg (26-34); Mean Corpuscular Volume 84.5 fl (80-100); Mean Platelet Volume 9.7 fl (7.4-10.4); Monocytes Absolute Auto 0.5 K/mm3 (0.1-0.6); Neutrophils Absolute Auto 3.8 K/mm3 (1.3-6.7); Platelet Count Result 226 k/mm3 (150-375); Red Blood Count 4.84 M/mm3 (4.6-6.20); Red Cell Distribution Width 13.4 % (11.5-14.5); White Blood Count 5.4 K/mm3 (4.5-10.0)
[2024-06-02 05:14] LABS: Alanine Aminotransferase 21 U/L (6-50); Albumin Level 3.8 g/dL (3.5-5.1); Alkaline Phosphatase 42 U/L (38-126); Anion Gap 5 mmol/L (4-12); Aspartate Amino Transferase 24 U/L (17-59); Bilirubin,Total 0.8 mg/dL (0.2-1.3); Blood Urea Nitrogen 18 mg/dL (9-20); Calcium 8.7 mg/dL (8.4-10.2); Carbon Dioxide 26 mmol/L (22-30); Chloride 107 mmol/L (98-107); Cholesterol 177 mg/dL (0-200); Estimated CRCL calculation 66 ml/min; Estimated Glomerular Filt Rate > 60; Glucose 111 mg/dL (65-110); HDL Direct 48 mg/dL; Hemoglobin A1C 5.4 % (<5.7); Potassium 4.3 mmol/L (3.4-5.0); Sodium 138 mmol/L (137-145); Triglycerides 76 mg/dL (<150)
[2024-06-02 05:25] LABS: LDL Cholesterol Direct 91 mg/dL
[2024-06-02] MEDS: METOPROLOL TARTRATE 25 MG TABLET PO (08:27)
[2024-06-02] MEDS: ASPIRIN 81 MG ENTERIC TABLET PO (08:27)
[2024-06-02] MEDS: TICAGRELOR 90 MG TABLET PO (08:27)
--- NOTE | 2024-06-02 11:52 | P.PNCA_ITS ---
Progress Note: A&P Assessment and Plan (1) Non-ST elevation OR (NSTEMI): Code(s): I21.4 - Non-ST elevation (NSTEMI) myocardial infarction Status: Acute Assessment and Plan: Underwent successful IVUS guided PCI to the proximal to mid LAD with overlapping 4.0 x 34mm [place] ROWENA and 5.0 x 12mm [place] ROWENA proximally with excellent angiographic results. Continue ASA 81mg once daily indefinitely. Continue Brilinta 90mg BID for at least 1 year. Continue high intensity statin. Continue beta dillon. Obtain TTE. (2) CAD (coronary artery disease): Code(s): I25.10 - Atherosclerotic heart disease of [place] coronary artery without angina pectoris Status: Acute Assessment and Plan: As above. (3) Elevated blood pressure reading: Code(s): R03.0 - Elevated blood-pressure reading, without diagnosis of hypertension Status: Acute Assessment and Plan: Had elevated blood pressure on admission, now improved. Likely due to chest pain from NSTEMI. Continue Metoprolol. Plan Okay for discharge this afternoon once echocardiogram completed. Will arrange follow up in our office. Recommendations and plan discussed with Hospitalist. Subjective Date/time seen: 06/02/24 11:52 Interval history: Reason for visit: NSTEMI HPI: 63-year-old man presented with chest pain. Substernal chest pressure started yesterday while he was running with the dogs. The chest discomfort resolved with rest. Throughout yesterday he continued to have chest discomfort with physical exertion that was relieved with rest. He denies any palpitations, loss of consciousness, orthopnea, lower extremity swelling, and shortness of breath. He denies any bleeding or vascular surgeries in the past. He is otherwise a very functional person who runs the dog almost daily. Date of service 06/02: Feeling well today. Review of Systems Review of Systems: All systems reviewed & are unremarkable except as noted in HPI and below (HPI) Exam Const: General: comfortable and no acute distress HENMT: Mouth: Yes moist mucous membranes Eyes: General: appearance normal, both eyes and all related structures Sclera: sclerae normal Resp: Effort & Inspection: normal respiratory effort Cardio: Rate: regular rate Rhythm: regular rhythm Skin: General skin exam: normal color Neuro: Speech: normal speech Psych: Mental Status: mental status grossly normal Affect: normal affect Objective Data Vital Signs Vital Signs: Vital Signs - 24 hr 06/01/24 13:20 06/01/24 13:20 06/01/24 13:30 Temperature 36.7 C Pulse Rate 53 L 50 L Pulse Rate [Monitor] 57 L Respiratory Rate 16 17 Blood Pressure 136/84 133/103 H Pulse Oximetry 99 98 Oxygen Delivery Room Air Room Air Fraction of Inspired Oxygen 06/01/24 13:30 06/01/24 13:45 06/01/24 13:45 Temperature Pulse Rate 50 L Pulse Rate [Monitor] 50 L 50 L Respiratory Rate 19 Blood Pressure 125/92 H Pulse Oximetry 98 Oxygen Delivery Room Air Fraction of Inspired Oxygen 06/01/24 14:00 06/01/24 14:00 06/01/24 14:15 Temperature Pulse Rate 55 L Pulse Rate [Monitor] 55 L 53 L Respiratory Rate 17 Blood Pressure Pulse Oximetry 100 Oxygen Delivery Room Air Fraction of Inspired Oxygen 06/01/24 14:15 06/01/24 14:30 06/01/24 14:30 Temperature Pulse Rate 53 L 54 L Pulse Rate [Monitor] 54 L Respiratory Rate 14 16 Blood Pressure 130/85 110/66 Pulse Oximetry 100 100 Oxygen Delivery Room Air Room Air Fraction of Inspired Oxygen 06/01/24 15:00 06/01/24 15:00 06/01/24 14:45 Temperature Pulse Rate 58 L Pulse Rate [Monitor] 60 60 Respiratory Rate 19 Blood Pressure 137/77 Pulse Oximetry 97 Oxygen Delivery Room Air Fraction of Inspired Oxygen 06/01/24 14:45 06/01/24 15:15 06/01/24 15:45 Temperature Pulse Rate 60 61 59 L Pulse Rate [Monitor] Respiratory Rate 14 20 19 Blood Pressure 121/79 149/83 H 116/69 Pulse Oximetry 100 100 100 Oxygen Delivery Room Air Room Air Room Air Fraction of Inspired Oxygen 06/01/24 15:30 06/01/24 16:00 06/01/24 16:15 Temperature Pulse Rate 60 58 L 59 L Pulse Rate [Monitor] Respiratory Rate 18 18 22 H Blood Pressure 149/110 H 129/72 128/74 Pulse Oximetry 99 99 98 Oxygen Delivery Room Air Room Air Room Air Fraction of Inspired Oxygen 06/01/24 16:30 06/01/24 16:45 06/01/24 17:00 Temperature Pulse Rate 60 62 59 L Pulse Rate [Monitor] Respiratory Rate 15 18 20 Blood Pressure 137/77 132/83 127/105 H Pulse Oximetry 99 100 100 Oxygen Delivery Room Air Room Air Room Air Fraction of Inspired Oxygen 06/01/24 17:30 06/01/24 18:29 06/01/24 18:00 Temperature 37.1 C 36.6 C Pulse Rate 54 L 72 67 Pulse Rate [Monitor] Respiratory Rate 16 18 Blood Pressure 143/91 H 135/75 Pulse Oximetry 100 98 Oxygen Delivery Fraction of Inspired Oxygen 06/01/24 18:54 06/01/24 20:07 06/01/24 21:32 Temperature 37.0 C 36.9 C Pulse Rate 68 64 66 Pulse Rate [Monitor] Respiratory Rate 16 16 Blood Pressure 136/73 128/75 Pulse Oximetry 98 100 Oxygen Delivery Fraction of Inspired Oxygen 06/01/24 20:00 06/01/24 22:00 06/02/24 00:20 Temperature 36.9 C Pulse Rate 64 63 57 L Pulse Rate [Monitor] Respiratory Rate 16 Blood Pressure 121/72 Pulse Oximetry 98 Oxygen Delivery Fraction of Inspired Oxygen 06/02/24 00:00 06/02/24 02:00 06/02/24 05:09 Temperature 36.9 C Pulse Rate 58 L 52 L 52 L Pulse Rate [Monitor] Respiratory Rate 16 Blood Pressure 127/72 Pulse Oximetry 98 Oxygen Delivery Fraction of Inspired Oxygen 06/02/24 04:00 06/02/24 06:00 06/02/24 07:58 Temperature 36.8 C Pulse Rate 52 L 54 L 59 L Pulse Rate [Monitor] Respiratory Rate 20 Blood Pressure 132/67 Pulse Oximetry 100 Oxygen Delivery Fraction of Inspired Oxygen 06/02/24 08:27 06/02/24 08:31 06/02/24 08:00 Temperature Pulse Rate 72 72 Pulse Rate [Monitor] Respiratory Rate 20 Blood Pressure Pulse Oximetry 99 99 Oxygen Delivery Room Air Room Air Fraction of Inspired Oxygen 21 06/02/24 08:00 06/02/24 10:00 06/02/24 11:49 Temperature 36.5 C Pulse Rate 64 54 L 56 L Pulse Rate [Monitor] Respiratory Rate 20 Blood Pressure 131/80 Pulse Oximetry 100 Oxygen Delivery Fraction of Inspired Oxygen Intake/Output Intake/Output: Intake & Output 05/30/24 05/31/24 06/01/24 06/02/24 23:59 23:59 23:59 23:59 Intake Total 1080 1460 Balance 1080 1460 Meds/Results Medications: Active Medications Generic Name Dose Route Start Last Admin Trade Name Freq PRN Reason Stop Dose Admin Aspirin 81 mg 06/02/24 09:00 06/02/24 08:27 Aspirin 81 Mg Enteric Tablet PO 81 mg QAM JAYNE Administration Atorvastatin Calcium 80 mg 06/01/24 21:00 06/01/24 21:32 Atorvastatin 40 Mg Tablet PO 80 mg HS JAYNE Administration Metoprolol Tartrate 25 mg 06/01/24 11:30 06/02/24 08:27 Metoprolol Tartrate 25 Mg Tablet PO 25 mg Q12HR JAYNE Administration Perflutren Lipid Microsphere 0 ml 06/01/24 10:00 Perflutren Lipid Microspheres 1.5 Ml Vial Diluted To 10 Ml Total Volume IV PUSH 06/04/24 10:00 ONCE PRN adequate visualization Protocol Ticagrelor 90 mg 06/01/24 21:00 06/02/24 08:27 Ticagrelor 90 Mg Tablet PO 90 mg Q12HR JAYNE Administration Radiology Results: ITS Impressions Chest X-Ray 06/01/24 08:55 IMPRESSION: Pleural-based opacity in the right apical area.Follow-up CT is advised. Otherwise, No acute cardiopulmonary pathology. Chest CT 06/02/24 09:45 IMPRESSION: 1. Pulmonary nodules measuring up to 6 mm, probably benign. Consider noncontrast low-dose chest CT in 6-12 months. 2. Small sliding hiatal hernia. 3. Diffuse hepatic steatosis. Labs Labs: Laboratory Results - last 24 hr 06/01/24 06/01/24 06/02/24 12:54 19:16 04:28 WBC 5.4 RBC 4.84 Hgb 13.4 L Hct 40.9 L MCV 84.5 MCH 27.7 MCHC 32.8 RDW 13.4 Plt Count 226 MPV 9.7 Immature Gran % (Auto) 0.2 Neut % (Auto) 71.0 Lymph % (Auto) 17.7 L [place] % (Auto) 9.0 H Eos % (Auto) 1.5 Baso % (Auto) 0.6 Lymph # (Auto) 0.95 [place] # (Auto) 0.5 Eos # (Auto) 0.1 Baso # (Auto) 0.0 Abs Immat Gran (auto) 0.01 Absolute Neuts (auto) 3.8 Absolute Nucleated RBC 0.000 Nucleated RBC % 0.0 Activ Coag Time Kaolin 219 H Sodium 138 Potassium 4.3 Chloride 107 Carbon Dioxide 26 Anion Gap 5 BUN 18 Creatinine 1.10 Estim Creat Clear Calc 66 Estimated GFR > 60 Glucose 111 H Hemoglobin A1c 5.4 Calcium 8.7 Total Bilirubin 0.8 AST 24 ALT 21 Alkaline Phosphatase 42 Troponin I 0.830 H* Total Protein 6.0 L Albumin 3.8 Triglycerides 76 Cholesterol 177 LDL Cholesterol Direct 91 HDL Direct 48 Vitamin B12 317.0 Folate 5.0 TSH (Reflex) 2.210
--- NOTE | 2024-06-02 14:35 | P.DS_ITS ---
DS: Admitting Diagnosis Discharge Date 06/02/24 Admitting Diagnosis Chest pain DS: Discharge Diagnosis Discharge Diagnosis (1) Non-ST elevation [place] (NSTEMI): Code(s): I21.4 - Non-ST elevation (NSTEMI) myocardial infarction Status: Acute (2) CAD (coronary artery disease): Code(s): I25.10 - Atherosclerotic heart disease of [place] coronary artery without angina pectoris Status: Acute (3) Elevated blood pressure reading: Code(s): R03.0 - Elevated blood-pressure reading, without diagnosis of hypertension Status: Acute (4) Abnormal chest x-ray: Code(s): R93.89 - Abnormal findings on diagnostic imaging of other specified body structures Status: Acute (5) Lymphopenia: Code(s): D72.810 - Lymphocytopenia Status: Acute DS: Summary Hospital Course Reason for hospitalization: 63yo healthy male who presents with chest pain. Please see H&P for details. Hospital Course: Patient presents with chest pain. In the ED, patient was hemodynamically stable. He was hypertensive with a blood pressure of 171/94. He was not febrile, tachycardic, tachypneic or hypoxic. EKG showed normal sinus rhythm with ST deviation and moderate T-wave changes consider anterior lateral ischemia. Chest x-ray showed a pleural based opacity in the right apical area otherwise no acute cardiopulmonary disease. CBC was normal except for a mild lymphopenia. CMP was normal except for a BUN 22 and a glucose of 127. Lipase was normal. Troponin trended up to 1.0. Patient was seen in the emergency room by Cardiology and was taken acutely for a left heart catheterization. He was found to have proximal to mid LAD acute 99% thrombotic lesion. The left main was widely patent without significant disease. Left circumflex and RCA had mild luminal irregularities. Patient underwent PCI of the proximal to mid LAD lesion with placement of a drug-eluting stent with good results. He was admitted for further care. Lymphopenia resolved. A1c 5.4%. TC 177, TG 76, LDL 91 and HDL 48. B12 317 and folate normal. MMA ordered. TSH normal. CTA chest showed pulmonary nodules measuring up to 6 mm probably benign, small sliding hiatal hernia and diffuse hepatic steatosis. Echo showing EF 60-65% with GFrade I diastolic dysfunction. Aortic root was 4.2cm. Results discussed with patient. He overall did well and was able to be discharged home on 06/02/24. Status at Discharge Cognitive/behavioral status at discharge: stable Time Spent with Patient Time attestation: Total time spent providing and/or coordinating discharge services: 36 minutes Time spent: Greater than 30 minutes Exam Narrative: AF 97.7 131/80 69 20 100% ra Gen - NARD Chest - CTA bilaterally, nml RR CV - RRR S1/S2. No rub Abd - Soft, NT/ND, Positive BS Ext - No pedal edema Neuro - Alert and oriented. Nonfocal exam. Psych - Nml mood and affect Skin - Warm and dry DS: Data Data Completed and Pending Labs on day of discharge: Labs from last 24 hours 06/02/24 06/02/24 06/01/24 04:28 04:22 19:16 WBC 5.4 RBC 4.84 Hgb 13.4 L Hct 40.9 L MCV 84.5 MCH 27.7 MCHC 32.8 RDW 13.4 Plt Count 226 MPV 9.7 Immature Gran % (Auto) 0.2 Neut % (Auto) 71.0 Lymph % (Auto) 17.7 L [place] % (Auto) 9.0 H Eos % (Auto) 1.5 Baso % (Auto) 0.6 Lymph # (Auto) 0.95 [place] # (Auto) 0.5 Eos # (Auto) 0.1 Baso # (Auto) 0.0 Abs Immat Gran (auto) 0.01 Absolute Neuts (auto) 3.8 Absolute Nucleated RBC 0.000 Nucleated RBC % 0.0 Sodium 138 Potassium 4.3 Chloride 107 Carbon Dioxide 26 Anion Gap 5 BUN 18 Creatinine 1.10 Estim Creat Clear Calc 66 Estimated GFR > 60 Glucose 111 H Hemoglobin A1c 5.4 Calcium 8.7 Total Bilirubin 0.8 AST 24 ALT 21 Alkaline Phosphatase 42 Troponin I 0.830 H* Total Protein 6.0 L Albumin 3.8 Triglycerides 76 Cholesterol 177 LDL Cholesterol Direct 91 HDL Direct 48 Vitamin B12 317.0 Methylmalonic Acid Pending Folate 5.0 TSH (Reflex) 2.210 Discharge Plan Discharge Attending physician on discharge: James Craolina Consulting providers: Kavin Cohen Discharging Clinician: James Carloina Patient Disposition: Home, Self-Care Activity: other - see discharge instructions Diet: heart healthy Discharge Instructions: [facility] [address] [place] [address] DISCHARGE INSTRUCTIONS - POST PCI Activity 1. No driving until 06/02. 2. No lifting, pushing or pulling more than 10 pounds for 1 week. 3. No strenuous exercise or activity (including sexual activity) until you are released to do so. 4. May shower but no tub baths or swimming pool for 1 week. Avoid commercial hot tubs. They are too hot. Medications DO NOT STOP YOUR MEDICATIONS ONLY YOUR MECHANICAL SUPERVISOR CAN STOP THE FOLLOWING MEDICATIONS - PLEASE CALL THE OFFICE WITH QUESTIONS. *Aspirin *Ticagrelor (Brilinta) *Atorvastatin *Lisinopril or ARB *Metoprolol tartrate or succinate *Clopidogrel (Plavix) *Prasugrel (Effient) Important Reminders 1. Keep your stent card in your wallet at all times 2. Follow a heart healthy diet paying extra attention to cholesterol and fats. 3. Stay hydrated. 4. If you have chest pain unrelieved by rest or nitroglycerin (if prescribed) call 911 immediately. 5. If you miss one dose of Brilinta (if prescribed) take a tablet at the next time due. If you miss 2 doses take a tablet when you remember and resume at the next time due. *For any other questions please call the office at [phone]. Office hours are 8AM 4:30PM Saturday through Saturday. Follow-up with your primary care provider in 1-2 weeks. Please call for appointment. Talk with your doctor about ordering a repeat Chest CT in 6-12 months to follow up on the pulmonary nodules in the right upper lobe. Thank you for using [facility] for your health care needs. Patient Instructions: Metoprolol (By mouth), Atorvastatin (By mouth), Ticagrelor (By mouth), Chest Pain (DC), Heart Healthy Diet (DC), Acute Coronary Syndrome (DC), Cardiac Rehabilitation (DC), Coronary Intravascular Stent Placement (DC), After Radial Heart Catheterization (GEN) Follow-up/Referrals: Kavin Cohen MD [Physician] - Call for Appointment Flaquito Bose MD [Primary Care Provider] - Call for Appointment Discharge Medications: New Brilinta 90 mg Tablet 90 mg PO Q12HR 30 Days Qty: 60 11RF metoprolol tartrate 25 mg Tablet 25 mg PO Q12HR Qty: 60 2RF cyanocobalamin (vitamin B-12) 1,000 mcg capsule 1,000 mcg PO DAILY Qty: 30 0RF aspirin 81 mg Tablet,Delayed Release (Dr/Ec) 81 mg PO QAM Qty: 30 2RF atorvastatin 80 mg tablet 80 mg PO DAILY Qty: 30 2RF Date of admission: 06/01/24 10:21 Primary Care Provider: Flaquito Bose Admitting Provider: James Carolina Attending physician on admission: James Carolina Condition: Stable Hospitalist MIPS Heart Failure (Exclusion) Patient has history of Heart Transplant or Left Ventricular Assistive Device?: No IF YES, STOP HERE Heart Failure (Qualifier) Patient has current or prior documentation of LVEF less than or equal to 40%, or mod/servere depressed LVSF?: No IF NO, STOP HERE
[2024-06-07 02:54] LABS: Methylmalonic Acid 200 nmol/L (69-390)
--- NOTE | 2024-06-08 09:01 | PC.NURSE ---
MMA is WNL at 200
== END 2024-06-02 16:14 | disposition home or self-care (01) ==
LOC: ANHED 09:26 → ANHICU 12:38 → ANHIMU 06-02 09:40
PROVIDERS: Internal Medicine; Admitting Provider Internal Medicine; Emergency Provider Emergency Medicine; PCP Family Medicine; Visit Provider Internal Medicine
PROC: 4A023N7 Measurement of Cardiac Sampling and Pressure, Left Heart, Percutaneous Approach (ICD-10-PCS; CPT 93452; principal; 2024-06-01 11:30)
DX: I21.4 Non-ST elevation (NSTEMI) myocardial infarction (principal); I25.10 Atherosclerotic heart disease of native coronary artery without angina pectoris; R03.0 Elevated blood-pressure reading, without diagnosis of hypertension; R93.89 Abnormal findings on diagnostic imaging of other specified body structures; D72.810 Lymphocytopenia; K44.9 Diaphragmatic hernia without obstruction or gangrene; K76.0 Fatty (change of) liver, not elsewhere classified; R91.8 Other nonspecific abnormal finding of lung field; Z87.01 Personal history of pneumonia (recurrent)
CPT/HCPCS: 36415; 71046; 71260; 80053; 80061; 82607; 82746; 83036; 83690; 83921; 84443; 84484; 85025; 85610; 85730; 92978; 93005; 93306; 93458; 96374; 99285; A9270; C1725; C1753; C1769; C1874; C1887; C1894; C9600; G0378; J1644; J2003; J2250; J2305; J3010; J7030; J7040; Q9967